=== PATIENT | female | born 1950 | race Caucasian/White ===

== ENCOUNTER → 2016-06-12 | Outpatient (CLI) | payer MEDICARE, OTHER | DX: M81.0 Age-related osteoporosis without current pathological fracture (principal); Z88.2 Allergy status to sulfonamides | CPT/HCPCS: 96372 ==

== ENCOUNTER → 2020-04-06 | Outpatient (CLI) | payer MEDICARE, OTHER | LOC: OPSV 11:54 | DX: M81.0 Age-related osteoporosis without current pathological fracture (principal) | CPT/HCPCS: 96372 ==

== ENCOUNTER → 2020-10-06 | Outpatient (CLI) | payer MEDICARE, OTHER | LOC: OPSV 11:00 | DX: M81.0 Age-related osteoporosis without current pathological fracture (principal) | CPT/HCPCS: 96372 ==

== ENCOUNTER 2020-11-17 15:31 | Emergency (ER) | payer MEDICARE, OTHER ==
[~2020-11-17] VITALS: Ht 152.4 cm; Wt 58.1 kg
[2020-11-17 17:30] LABS: HEMOGLOBIN 12.5 gm/dl (12.3-15.3); RED BLOOD COUNT 4.54 M/UL (4.00-5.10); WHITE BLOOD COUNT 4.2 K/UL (4.5-11.0)
[2020-11-17 17:48] LABS: BUN/CREATININE RATIO 10 (0-10)
== END 2020-11-17 19:00 | disposition home or self-care (01) ==
LOC: ER1 15:31
PROVIDERS: Physician Assistant
DX: U07.1 COVID-19 (principal); Z90.49 Acquired absence of other specified parts of digestive tract; Z88.2 Allergy status to sulfonamides; Z88.1 Allergy status to other antibiotic agents
CPT/HCPCS: 80053; 85025; 99284

== ENCOUNTER → 2021-04-05 | Outpatient (CLI) | payer MEDICARE, OTHER ==
[~2021-04-05] VITALS: Ht 162.6 cm; Wt 80.7 kg
== END ==
LOC: OPSV 12:57
DX: M81.0 Age-related osteoporosis without current pathological fracture (principal)
CPT/HCPCS: 96372

== ENCOUNTER 2021-05-09 10:30 | Inpatient (IN) | payer MEDICARE, OTHER ==
[~2021-05-09] VITALS: Ht 152.4 cm; Wt 79.4 kg
[2021-05-09 11:23] LABS: HEMOGLOBIN 13.6 gm/dl (12.3-15.3); RED BLOOD COUNT 4.71 M/UL (4.00-5.10); WHITE BLOOD COUNT 8.5 K/UL (4.5-11.0)
[2021-05-09 11:50] LABS: BUN/CREATININE RATIO 19 (0-10)
[2021-05-09] MEDS ORDERED: LEXAPRO10 MG PO (15:56)
[2021-05-09] MEDS ORDERED: LOSARTAN POTAS100 MG PO (15:56)
[2021-05-09] MEDS ORDERED: XYZAL5 MG PO (15:56)
[2021-05-09] MEDS ORDERED: CYMBALTA60 MG PO (15:57)
[2021-05-09] MEDS ORDERED: LEVOTHYROXINE75 MCG PO (15:57)
[2021-05-09] MEDS ORDERED: GABAPENTIN400 MG PO (15:57)
[2021-05-09] MEDS ORDERED: VITAMIN D350 MC3 PO (15:58)
[2021-05-09] MEDS ORDERED: FAMOTIDINE40 MG PO (15:58)
[2021-05-09] MEDS ORDERED: SIMVASTATIN20 MG PO (15:58)
[2021-05-09] MEDS ORDERED: BIOTIN800 MCG PO (15:59)
[2021-05-09] MEDS ORDERED: ASCORBIC ACID500 MG PO (15:59)
--- NOTE | 2021-05-09 18:23 | NUR ---
PATIENT RECEIVED TO 5126 AT 1812. [id number]. RESP EVEN AND UNLABORED. LUNGS CLEAR AND DIMINISHED. O2 AT 2L NC INTACT. SKIN W/D/I. AMBULATES WITH STAND BY ASSIST. DENIES C/O PAIN OR DISCOMFORT. ORIENTED TO AND CALL LIGHT. NO DISTRESS NOTED. WCTM.
--- NOTE | 2021-05-10 01:22 | NUR ---
PT WAS GIVEN I/S AND EDUCATED ON USE. PT DEMOSTRATED BACK USEAGE. PT WAS ABLE TO GO 1000ML DURING DEMOSTRATION.
[2021-05-10 04:30] LABS: HEMOGLOBIN 12.7 gm/dl (12.3-15.3); RED BLOOD COUNT 4.45 M/UL (4.00-5.10); WHITE BLOOD COUNT 6.3 K/UL (4.5-11.0)
[2021-05-10 04:40] LABS: BUN/CREATININE RATIO 26 (0-10)
[2021-05-11 04:26] LABS: HEMOGLOBIN 11.6 gm/dl (12.3-15.3); RED BLOOD COUNT 4.07 M/UL (4.00-5.10); WHITE BLOOD COUNT 5.7 K/UL (4.5-11.0)
[2021-05-11 04:41] LABS: BUN/CREATININE RATIO 24 (0-10)
--- NOTE | 2021-05-11 10:25 | NUR ---
ROOM AIR STAT 87%
[2021-05-11] MEDS ORDERED: DEXAMETHASONE6 MG PO (12:15)
== END 2021-05-11 15:43 | disposition home or self-care (01) | DRG 193 ==
LOC: ER1 10:30 → CDU 15:17 → M/S 15:17
PROVIDERS: ADMIT Family Medicine
DX: J12.9 Viral pneumonia, unspecified (principal); J96.01 Acute respiratory failure with hypoxia; F32.A Depression, unspecified; F41.9 Anxiety disorder, unspecified; Z20.822 Contact with and (suspected) exposure to COVID-19; E78.5 Hyperlipidemia, unspecified; M81.0 Age-related osteoporosis without current pathological fracture; I10 Essential (primary) hypertension; E03.9 Hypothyroidism, unspecified; Z88.1 Allergy status to other antibiotic agents; Z88.2 Allergy status to sulfonamides; Z99.81 Dependence on supplemental oxygen
CPT/HCPCS: 36415; 36600; 71045; 80048; 80053; 82550; 82553; 82803; 83605; 83615; 83874; 83880; 84484; 85025; 85027; 86140; 87040; 87278; 93005; 99285; J0456; J0696; J1100; J1650; J7030; Q9967; U0002

== ENCOUNTER → 2021-06-01 | Outpatient (CLI) | payer MEDICARE, OTHER ==
[~2021-06-01] MED LIST: ASCORBIC ACID500 MG PO; BIOTIN800 MCG PO; CYMBALTA60 MG PO; DEXAMETHASONE6 MG PO; FAMOTIDINE40 MG PO; GABAPENTIN400 MG PO; LEVOTHYROXINE75 MCG PO; LEXAPRO10 MG PO; LOSARTAN POTAS100 MG PO; SIMVASTATIN20 MG PO; VITAMIN D350 MC3 PO; XYZAL5 MG PO
== END ==
LOC: KOH-I 08:55
DX: J18.9 Pneumonia, unspecified organism (principal)
CPT/HCPCS: 71046

== ENCOUNTER → 2021-06-27 | Outpatient (CLI) | payer MEDICARE, OTHER | LOC: ECHO 08:48 | DX: R00.2 Palpitations (principal); I11.9 Hypertensive heart disease without heart failure; Z86.16 Personal history of COVID-19; I35.8 Other nonrheumatic aortic valve disorders | CPT/HCPCS: ECHO; 93306 ==

== ENCOUNTER → 2021-08-01 | Outpatient (CLI) | payer MEDICARE, OTHER | LOC: KOH-I 13:00 | DX: R93.89 Abnormal findings on diagnostic imaging of other specified body structures (principal); R91.8 Other nonspecific abnormal finding of lung field | CPT/HCPCS: 71250 ==

== ENCOUNTER → 2021-10-05 | Outpatient (CLI) | payer MEDICARE, OTHER ==
[~2021-10-05] VITALS: Ht 152.4 cm; Wt 78.5 kg
== END ==
LOC: OPSV 13:51
DX: M81.0 Age-related osteoporosis without current pathological fracture (principal)
CPT/HCPCS: 96372

== ENCOUNTER → 2021-10-28 | Outpatient (CLI) | payer MEDICARE, OTHER | LOC: MAMO 12:58 | DX: Z12.31 Encounter for screening mammogram for malignant neoplasm of breast (principal) | CPT/HCPCS: 77063; 77067 ==

== ENCOUNTER → 2021-12-26 | Outpatient (CLI) | payer MEDICARE, OTHER | LOC: KOH-I 11:32 | DX: M47.26 Other spondylosis with radiculopathy, lumbar region (principal) | CPT/HCPCS: 72110 ==